=== PATIENT | female | born 1940 | race Caucasian/White ===

== ENCOUNTER 2018-03-23 02:57 | Outpatient (CLI) | payer MEDICARE | END 2018-03-23 23:59 | disposition home or self-care (01) | LOC: DIABETIC 02:57 | PROVIDERS: ATTEND Surgery | DX: Z71.3 Dietary counseling and surveillance (principal); Z48.815 Encounter for surgical aftercare following surgery on the digestive system; Z98.84 Bariatric surgery status | CPT/HCPCS: 97802 ==

== ENCOUNTER 2024-08-26 17:37 | Emergency (ER) | payer MEDICARE ==
[~2024-08-26] VITALS: Ht 170.2 cm; Wt 55.0 kg
[2024-08-26 18:08] VITALS: TEMP 97.5
[2024-08-26 18:09] VITALS: RESP 15
[2024-08-26] MEDS: normal saline 1000ML IV soln IVB ONE (18:10)
[2024-08-26 20:29] LABS: BASOPHILS % (AUTO) 1.2 % (0-1); EOSINOPHILS # (AUTO) 0.1 X10'3 (0-0.9); EOSINOPHILS % (AUTO) 2.2 % (0-6); HEMATOCRIT 37.5 % (35.0-45.0); HEMOGLOBIN 12.3 g/dl (12.0-16.0); LYMPHOCYTES # (AUTO) 1.1 X10'3 (1.1-4.8); LYMPHOCYTES % (AUTO) 30.7 % (21-51); MEAN CORPUSCULAR HEMOGLOBIN 30.1 PG (27.0-31.0); MEAN CORPUSCULAR HGB CONC 32.8 g/dL (33.0-36.5); MEAN CORPUSCULAR VOLUME 91.8 FL (78-98); MEAN PLATELET VOLUME 6.7 FL (7.4-10.4); MONOCYTES # (AUTO) 0.4 X10'3 (0-0.9); MONOCYTES % (AUTO) 10.8 % (2-12); NEUTROPHILS # (AUTO) 1.9 X10'3 (1.8-7.7); NEUTROPHILS % (AUTO) 55.1 % (42-75); PLATELET COUNT 338 X10'3 (140-440); RED BLOOD COUNT 4.09 X10'6 (4.20-5.60); RED CELL DISTRIBUTION WIDTH 15.2 % (11.5-14.5); WHITE BLOOD COUNT 3.5 X10'3 (4.5-11.0)
[2024-08-26 20:45] VITALS: BP 167/105; PULSE 73; O2SAT 97
[2024-08-26 20:56] LABS: ALANINE AMINOTRANSFERASE 30 U/L (12-78); ALBUMIN 3.2 G/DL (3.4-5.0); ALBUMIN/GLOBULIN RATIO 0.9 (1.1-1.5); ALKALINE PHOSPHATASE 102 IU/L (46-116); ANION GAP 5 (8-16); ASPARTATE AMINO TRANSFERASE 18 U/L (10-37); BILIRUBIN,TOTAL 0.4 MG/DL (0.1-1.0); BLOOD UREA NITROGEN 10 MG/DL (7-18); BUN/CREATININE RATIO 14.5 (10.0-20.0); CALCIUM 9.1 MG/DL (8.5-10.1); CHLORIDE 104 MMOL/L (99-107); CREATININE 0.69 MG/DL (0.40-0.90); GLUCOSE 128 MG/DL (70-104); LIPASE 24 U/L (16-77); POTASSIUM 3.7 MMOL/L (3.5-5.1); SODIUM 141 MMOL/L (135-145); TOTAL CARBON DIOXIDE 31.7 MMOL/L (24-32); TOTAL PROTEIN 6.9 G/DL (6.4-8.2); eCRCL 54 ML/MIN; eGFR 81 ML/MIN
== END 2024-08-27 00:20 ==
LOC: ER 17:38
DX: R10.84 Generalized abdominal pain (principal); E03.9 Hypothyroidism, unspecified; E78.00 Pure hypercholesterolemia, unspecified; F03.90 Unspecified dementia, unspecified severity, without behavioral disturbance, psychotic disturbance, mood disturbance, and anxiety; I10 Essential (primary) hypertension; Z88.6 Allergy status to analgesic agent; Z72.89 Other problems related to lifestyle
CPT/HCPCS: 36415; 80053; 83690; 84145; 85025; 96360; 96361; 99285; J7030

== ENCOUNTER 2025-01-19 07:10 | Day surgery (SDC) | payer MEDICARE ==
--- NOTE | 2025-01-12 14:52 | ELECTROCARDIOGRAPH REPORT ---
[facility] Test Date: 2025-01-12 Test Time: 14:47:43 Pat Name: ELVIRA VELEZ Department: [facility]-PRE-OP Patient ID: [facility]-[id number] Room: Gender: F Library Circulation Technician: : 1940 Requested By: BLAIR BETANCOURT Order Number: [id number] Reading MD: Dr. JOSE Chavez Measurements Intervals [place] Rate: 81 P: 62 RI: 161 QRS: -34 QRSD: 94 T: 81 QT: 389 QTc: 452 Interpretive Statements Sinus rhythm Abnormal R-wave progression, early transition Left ventricular hypertrophy Electronically Signed On 01-13-2025 14:01:[address] JOSE Chavez Please click the below link to view image of tracing.
[2025-01-12 15:21] LABS: MEAN PLATELET VOLUME 6.9 FL (7.4-10.4); PRE OP HEMATOCRIT 35.4 % (35.0-45.0); PRE OP HEMOGLOBIN 11.6 g/dL (12.0-16.0); PRE OP PLATELET COUNT 271 X10'3 (140-440); PRE OP WHITE BLOOD COUNT 4.5 10'3 (4.8-10.8); RED CELL DISTRIBUTION WIDTH 15.2 % (11.5-14.5)
[2025-01-12 15:30] LABS: CREATININE 0.88 MG/DL (0.40-0.90); PRE OP ALT 37 U/L (30-65); PRE OP ANION GAP 6 (8-16); PRE OP AST 29 U/L (10-37); PRE OP BILIRUB, TOTAL 0.3 MG/DL (0.0-1.0); PRE OP GLUCOSE 79 MG/DL (70-104); PRE OP POTASSIUM 4.0 MMOL/L (3.4-5.1); PRE OP SODIUM 138 MMOL/L (135-145); TOTAL CARBON DIOXIDE 29.4 MMOL/L (24-32); eGFR 61 ML/MIN
[2025-01-19] VITALS (15 sets, daily range): BP systolic 115–179; BP diastolic 55–97; PULSE 80–97; RESP 14–20; TEMP 98.2; O2SAT 94–99
[~2025-01-19] VITALS: Ht 170.2 cm; Wt 55.7 kg
[2025-01-19] MEDS: ceFAZolin 2gm/dext,iso 50mL 50 ML IV ONE (05:30)
[~2025-01-19 07:10] MED LIST: ATOR10TA70 PO; CARB-268 EACHEYE; CHOL25CA2 PO; DEXAMETHASONE EACHEYE; DOCU100C40 PO; LEVO75TA7 PO; MULT-1085 PO; OMEP20CA15 PO; QUET50TA24 PO; TOBRAMYCIN EACHEYE
[2025-01-19] MEDS: ringers solution, lacted 1,000 ML IV SCH (07:55)
[2025-01-19] MEDS ORDERED: ondansetron/PF 4mg/2ml inj IV PRN (08:15)
[2025-01-19] MEDS ORDERED: morphine 4 MG/ML inj SYRINge IV PRN (08:15)
[2025-01-19] MEDS ORDERED: labetalol 20mg/4ml (5mg/ml) syringe IV PRN (08:15)
[2025-01-19] MEDS ORDERED: fentaNYL/PF 50MCG/1 ML 2ML syringe IV PRN ×2 (08:15)
[2025-01-19] MEDS ORDERED: ringers solution, lacted 1,000 ML IV SCH (08:15)
[2025-01-19] MEDS ORDERED: hydrALAZINE 20mg/ml inj. IV PRN (08:15)
[2025-01-19] MEDS ORDERED: BUPIVAcaine 2.5mg/ml inj 50ml vial (contains preservative) ONE (08:44)
[2025-01-19] MEDS ORDERED: LIDOcaine 1% 30ml preserv. free vial ONE (08:44)
[2025-01-19] MEDS ORDERED: desflurane 240ml liquid inh. IH ONE (08:52)
[2025-01-19] MEDS ORDERED: fentaNYL/PF 50MCG/1 ML 2ML syringe ONE ×2 (08:54→10:12)
[2025-01-19] MEDS ORDERED: acetaminophen 1,000mg/100ml IV 100 ML IV ONE (08:55)
[2025-01-19] MEDS ORDERED: propofol inj 20 ML IV ONE (08:55)
[2025-01-19] MEDS ORDERED: LIDOcaine 2% (20mg/ml) 5ml vial ONE (08:55)
[2025-01-19] MEDS ORDERED: midazolam 1 mg/ML 2ml injection ONE (08:55)
[2025-01-19] MEDS ORDERED: rocuronium 10mg/ml inj IV ONE (08:55)
[2025-01-19] MEDS ORDERED: ondansetron/PF 4mg/2ml inj ONE (09:07)
[2025-01-19] MEDS ORDERED: labetalol 20mg/4ml (5mg/ml) syringe IV ONE (09:10)
[2025-01-19] MEDS: BUPIVAcaine/PF 2.5 mg/ml (0.25%) 30ml vial IJ ONE (09:25)
[2025-01-19] MEDS ORDERED: hydrALAZINE 20mg/ml inj. ONE (09:27)
--- NOTE | 2025-01-19 11:20 | OPERATIVE REPORT ---
Operative Report Providers to CC CC: KENDALL BETANCOURT MD ~ Date of Procedure: Jan 19, 2025 Pre-Operative Diagnosis: Slipped gastric band Gastric outlet obstruction Post-Operative Diagnosis SAME as PRE-Op Intra-abdominal adhesions Procedure Performed Robotic assisted, laparoscopic, surgical removal of adjustable gastric restrictive device and subcutaneous port components (CPT: 77645) Surgeon: Kendall Betancourt MD FACS Stone Cleaner None Anesthesiologist: Cristian Hurst Type of Anesthesia: General Findings: Patient is an 84-year-old woman with a history of laparoscopic adjustable gastric band placement presenting with symptoms and imaging consistent with a slipped gastric band and moderate to severe gastric outlet obstruction. After discussion of risks, benefits and alternatives with the patient's power of patent prosecution attorney, we decided and consented to a robotic assisted laparoscopic removal of the band, port and tubing. Intra-abdominal findings noted significant adhesions in the right upper quadrant with massive distention of the portion of the stomach proximal to the gastric band. I was able to remove band and all components without significant diff iculty. Wound Class I Complications None Prosthetics\Implants used: None Estimated Blood Loss: 10-15 cc Specimen Removed: Weinert port, tubing and gastric band; removed, photographed and discarded Description of Procedure: Patient was brought to the operating room and identified by the nursing staff and the attending physician. Patient was placed supine and general anesthesia was induced. The patient's abdomen was prepped and draped in the standard sterile fashion. Pneumoperitoneum was established using a Veress needle at szymanski's point. Robotic trocars were placed under laparoscopic visualization. Fairly extensive adhesions in the left upper quadrant were noted; mostly between the band tubing and omentum and stomach. Adhesions were taken down exposing the tubing and its connection to the band. The band was dissected free from the surrounding tissues taking care to avoid injury to the stomach and adjacent structures. The locking mechanism was released and the band was removed. This required dividing the band in half as the buccal was hanging up in the scarred capsule. The internal components were secured with a [place] grasper. Local anesthetic was infiltrated over the visible port in the left upper quadrant. Skin incision was made with scalpel and deepened down. The port was freed from the underlying soft tissue, cut from the tubing and passed off the field. At the port site, the tubing exiting the port through the abdominal wall was secured. The insertion site was dilated and the gastric band and tubing from within were delivered. All components were accounted for. Fascial opening at the port site was closed with interrupted Vicryl suture. Ports were removed and skin was closed at all sites with 4-0 Monocryl sutures in a subcuticular fashion. Dressings were applied. Patient was awakened and taken to the postanesthesia care unit in stable condition. Counts repoted as correct: Yes KENDALL BETANCOURT MD Jan 19, 2025 11:20
== END 2025-01-19 13:44 ==
LOC: PAS 07:10
PROVIDERS: ATTEND Surgery
DX: K95.09 Other complications of gastric band procedure (principal); K31.1 Adult hypertrophic pyloric stenosis; I10 Essential (primary) hypertension; K21.9 Gastro-esophageal reflux disease without esophagitis; F41.9 Anxiety disorder, unspecified; E03.9 Hypothyroidism, unspecified; F32.A Depression, unspecified; E78.5 Hyperlipidemia, unspecified; F03.90 Unspecified dementia, unspecified severity, without behavioral disturbance, psychotic disturbance, mood disturbance, and anxiety; Z88.8 Allergy status to other drugs, medicaments and biological substances; Z79.899 Other long term (current) drug therapy; Z98.890 Other specified postprocedural states
CPT/HCPCS: 36415; 43774; 80053; 82948; 85025; 93005; A4215; A4618; J0131; J0360; J1100; J2003; J2250; J2405; J2704; J3010; J3490; J7030; J7120; Z7506; Z7508; Z7512; Z7610